=== PATIENT | female | born 1955 | race American Indian/Alaskan Native ===

== ENCOUNTER 2018-03-30 22:52 | Emergency (ER) | payer BC ==
[2018-03-30] MEDS ORDERED: Oxycodone/Acetaminophen 5/325 mg Tab ONE (23:31)
[2018-03-30] MEDS ORDERED: Lidocaine 5% Patch TD STA (23:43)
[2018-03-30] MEDS ORDERED: Oxycodone/Acetaminophen 5/325 mg Tab PO STA (23:43)
[2018-03-30] MEDS ORDERED: Lidocaine 5% Patch TD ONE (23:50)
--- NOTE | 2018-03-31 00:07 | C.PDOC ---
History Of Present Illness 62 year old female presents to the ED c/o atraumatic right shoulder pain for the past 2 weeks. Patient reports she was seen at [facility] last night for same complaints and was given flexeril, naproxen and toradol IM with no relief to symptoms. While in the ED patient is whit her right arm elevated resting over her head for comfort and pain relief. Patient denies injury, fall, trauma, CP, SOB, weakness, numbness. Time Seen by Provider: 03/30/18 23:24 Chief Complaint (Nursing): Upper Extremity Problem/Injury History Per: Patient History/Exam Limitations: no limitations Onset/Duration Of Symptoms: Days Current Symptoms Are (Timing): Still Present Quality: "Pain" Exacerbating Factor(s): Strenuous Use Of Affected Area, Movement Recent travel outside of the [place]: No Additional History Per: Patient Past Medical History Reviewed: Historical Data, Nursing Documentation, Vital Signs Vital Signs: Last Vital Signs Temp 98 F 03/31/18 01:29 Pulse 67 03/31/18 01:29 Resp 20 03/31/18 01:29 BP 167/90 H 03/31/18 01:29 Pulse Ox 98 03/31/18 01:29 - Medical History PMH: HTN Surgical History: No Surg Hx Family History: States: Unknown Family Hx - Social History Hx Alcohol Use: No Hx Substance Use: No Review Of Systems Constitutional: Negative for: Fever, Chills Cardiovascular: Negative for: Chest Pain, Palpitations Respiratory: Negative for: Shortness of Breath Gastrointestinal: Negative for: Nausea, Vomiting Musculoskeletal: Positive for: Shoulder Pain Neurological: Negative for: Weakness, Numbness Physical Exam - Physical Exam Appears: Non-toxic, In Acute Distress (due to pain) Skin: Normal Color, Warm, Dry Head: Atraumatic, Normacephalic Eye(s): bilateral: Normal Inspection Oral Mucosa: Moist Neck: Normal ROM, Supple Chest: Symmetrical Cardiovascular: Rhythm Regular Respiratory: Normal Breath Sounds, No Rales, No Rhonchi, No Wheezing Gastrointestinal/Abdominal: Soft, No Tenderness, No Guarding, No Rebound Extremity: No Normal ROM (right shoulder painful), Tenderness (diffuse right shoulder), Capillary Refill (< 2 second), No Swelling Pulses: Left Radial: Normal, Right Radial: Normal Neurological/Psych: Oriented x3, Normal Speech, Normal Motor, Normal Sensation Gait: Steady ED Course And Treatment O2 Sat by Pulse Oximetry: 97 (ON RA) Pulse Ox Interpretation: Normal - Other Rad shoulder xray X-Ray: Interpreted by Me Interpretation: no fx/dislocation/bony lesions Progress Note: Plan: - Lidoderm patch. - Percocet 1 tab PO. - Right shoulder X-Ray. On re-evaluation minimal improvement. Patient will be d/c home with PMD and Ortho follow up. Disposition - Disposition Referrals: Urszula Hernández MD [Staff Provider] - Disposition: HOME/ ROUTINE Disposition Time: 01:11 Condition: STABLE Additional Instructions: Follow up with Orthopedist within 1-2 days. Return to ED if feel worse. Prescriptions: Lidocaine [Aspercreme] 1 each TP DAILY #15 adh..patch oxyCODONE/Acetaminophen [Percocet 5/325 mg Tab] 1 tab PO QID PRN #15 tab PRN Reason: Pain Instructions: Shoulder Pain (DC) Forms: [employer] (Croatian) - Clinical Impression Clinical Impression: Shoulder pain - PA / WATER POLLUTION CONTROL TECHNICIAN / Resident Statement MD/DO has reviewed & agrees with the documentation as recorded. - Scribe Statement The provider has reviewed the documentation as recorded by the Scribe Duy Levi All medical record entries made by the Scribe were at my direction and personally dictated by me. I have reviewed the chart and agree that the record accurately reflects my personal performance of the history, physical exam, medical decision making, and the department course for this patient. I have also personally directed, reviewed, and agree with the discharge instructions and disposition.
[2018-03-31 01:31] VITALS: BP 167/90; PULSE 67; RESP 20; TEMP 98
[2018-03-31 02:52] VITALS: O2SAT 97
--- NOTE | 2018-03-31 12:46 | RAD ---
PROCEDURE: Radiographs of the Right Shoulder HISTORY: Atraumatic shoulder pain COMPARISON: No prior. FINDINGS: BONES: Bone alignment and mineralization are normal. There is no acute displaced fracture or bone destruction. 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 The acromioclavicular joint is normal. SOFT TISSUES: Normal. OTHER FINDINGS: None. IMPRESSION: No acute fracture or dislocation.
== END 2018-03-31 01:31 | disposition home or self-care (01) ==
LOC: C.ER 22:52
DX: M25.511 Pain in right shoulder (principal)